=== PATIENT | male | born 1970 | race Caucasian/White ===

== ENCOUNTER 2023-09-06 07:54 | Inpatient (IN) | payer MEDICAID ==
[~2023-09-06] VITALS: Ht 172.7 cm; Wt 87.5 kg
[2023-09-06 08:06] VITALS: O2SAT 98
[2023-09-06] MEDS ORDERED: LORAZEPAM 2MG/ML INJ IV ONE (08:30)
[2023-09-06] MEDS: LORAZEPAM 2MG/ML INJ IV NR (08:54)
[2023-09-06 09:00] LABS: HEMATOCRIT. 43.6 % (42.0-52.0); HEMOGLOBIN. 14.6 g/dL (14.0-18.0); MEAN CORPUSCULAR HEMOGLOBIN 32.4 pg (28.0-32.0); MEAN CORPUSCULAR HGB CONC 33.4 g/dL (31.0-37.0); MEAN PLATELET VOLUME 7.9 fl (7.4-10.4); PLATELET 189 x1000/uL (130-400); RED CELL DISTRIBUTION WIDTH 15.2 % (11.6-14.6)
[2023-09-06 09:03] LABS: DIFFERENTIAL COMMENT 1
[2023-09-06] MEDS: FOLIC ACID 1 MG, THIAMINE HCL 100 MG, MVI, ADULT NO.1 10 ML in DEXTROSE 5% WATER 1,000 ML IV ONE (09:18)
[2023-09-06 09:27] LABS: ALANINE AMINOTRANSFERASE 42 IU/L (10-49); ALBUMIN 4.7 g/dL (3.2-4.8); ASPARTATE AMINOTRANSFERASE 69 IU/L (<34); BILIRUBIN TOTAL 0.9 mg/dL (0.1-1.0); CALCIUM 8.8 mg/dL (8.7-10.4); CARBON DIOXIDE 19 mEq/L (21-32); CHLORIDE 100 mEq/L (98-107); CREATINE KINASE 1098 IU/L (46-171); ETHANOL BLOOD < 10 mg/dL (<10); GLUCOSE 248 mg/dL (70-105); POTASSIUM 3.7 mEq/L (3.5-5.1); PROTEIN TOTAL 7.6 g/dL (6.0-8.3); SODIUM 136 mEq/L (136-145); UREA NITROGEN BLOOD 16 mg/dL (9-23)
[2023-09-06 09:28] LABS: AMMONIA < 10 uMol/L (<32)
[2023-09-06] MEDS: SODIUM CHLORIDE 0.9% 1,000 ML IV ONE ×2 (09:54→12:18)
[2023-09-06 10:12] LABS: PLATELET ESTIMATE NORMAL
[2023-09-06] MEDS: CHLORDIAZEPOXIDE 25MG CAPSULE PO ONE (12:18)
[2023-09-06] MEDS ORDERED: LORAZEPAM 2MG/ML INJ IV PRN (15:45)
[2023-09-06] MEDS: METOPROLOL TARTRATE 50MG TABLET PO SCH (15:58)
[2023-09-06] MEDS: CHLORDIAZEPOXIDE 25MG CAPSULE PO SCH (15:58)
[2023-09-06 18:00] VITALS: BP 116/68; PULSE 93; RESP 20; TEMP 97.9
[2023-09-06 20:00] VITALS: BP 125/78; PULSE 95; RESP 18; TEMP 98.2
[2023-09-07] MEDS ORDERED: PANTOPRAZOLE 40MG DR TABLET PO ONE (07:10)
[2023-09-07] MEDS ORDERED: FOLIC ACID/VITAMIN B COMP W-C TABLET PO SCH (09:00)
[2023-09-07] MEDS ORDERED: THIAMINE HCL 100MG TABLET PO SCH (09:00)
[2023-09-07] MEDS ORDERED: MULTIVITAMINS,THER W-MINERALS TABLET PO SCH (09:00)
== END 2023-09-06 20:45 | disposition left against medical advice (07) | DRG 52 ==
LOC: ER 07:54 → EDBEDREQ 11:33 → 8WST 13:20 → EDBEDREQTM 13:42 → EDBEDREQ 13:42
PROVIDERS: ADMIT Internal Medicine; ATTEND Internal Medicine
DX: G92.9 Unspecified toxic encephalopathy (principal); M62.82 Rhabdomyolysis; Z53.29 Procedure and treatment not carried out because of patient's decision for other reasons; F10.239 Alcohol dependence with withdrawal, unspecified; F10.229 Alcohol dependence with intoxication, unspecified; Z79.899 Other long term (current) drug therapy; Y90.0 Blood alcohol level of less than 20 mg/100 ml
CPT/HCPCS: 36415; 80053; 80320; 82140; 82550; 85025; 93005; 99285; J2060; J3411; J3490; J7030; J7070; G0480